=== PATIENT | female | born 1975 | race Caucasian/White ===

== ENCOUNTER → 2016-09-18 | Day surgery (SDC) | payer OTHER ==
[2016-09-03 09:05] VITALS: BMI 24.0
--- NOTE | 2016-09-03 09:39 | PAT Medication Instructions ---
Service Date Sep 03, 2016. Current Home Medication List Acetaminophen (Tylenol), 1,000 MG PO PRN Multivitamin (Multivitamin), 1 TAB PO DAILY Medication Instructions For Your Scheduled Surgery - Hold the following medications the morning of surgery: Multivitamin (Multivitamin), 1 TAB PO DAILY - Take the following medications the morning of surgery with a sip of water OTHERWISE NOTHING TO EAT OR DRINK AFTER MIDNIGHT: Acetaminophen (Tylenol), 1,000 MG PO PRN (may take if needed up to 4 hours prior to surgery) If you have any questions please call us at [phone] (Shaniqua Brooks PA-C ) or [phone] or [phone]
[2016-09-03 09:59] LABS: BASO % 0.2 %; BASO ABS # 0.01 K/uL (0-0.2); COMPLETE YES; EOS % 1.1 %; HEMATOCRIT 37.4 % (37-47); LYMPH % 20.4 %; LYMPH ABS # 1.27 K/uL (1.2-3.4); MEAN CELL VOLUME 79.4 fL (80-100); MEAN CORPUSCULAR HEMOGLOBIN 25.9 pg (25-34); MEAN CORPUSCULAR HGB CONC 32.6 g/dl (32-36); MEAN PLATELET VOLUME 10.5 fL (7.4-10.4); MONO % 10.1 %; NEUT % 68.2 %; PLATELET COUNT 209 K/uL (130-400); RED BLOOD COUNT 4.71 M/uL (4.2-5.4); WHITE BLOOD COUNT 6.23 K/uL (4.8-10.8)
--- NOTE | 2016-09-17 15:30 | History and Physical ---
History & Physical Date Sep 17, 2016. Chief Complaint right parotid mass History of Present Illness The patient is a 40 year old female with complaints of enlarging mass right parotid Additional History Hepatic Disease: No Endocrine Disorder: No Kidney Disease: No Hypertension: No Heart Disease: No Bleeding Tendencies: No Infectious Diseases: No Allergies Coded Allergies: Erythromycin (Unverified Allergy, Unknown, G I UPSET, 09/03/16) Metoclopramide (Unverified Allergy, Unknown, AGITIATED, 09/03/16) Penicillins (Unverified Allergy, Unknown, RASH A CHILD, 09/03/16) HAS HAD INJECTION ADULT W/O PROBLEMS Home Medications Scheduled Acetaminophen (Tylenol), 1,000 MG PO PRN Multivitamin (Multivitamin), 1 TAB PO DAILY Physical Examination Skin: warm/dry, no rash Eyes: normal inspection, EOMI, sclerae normal ENT: normal ENT inspection, pharynx normal Head: normocephalic, atraumatic Neck: supple, no adenopathy, trachea midline, + pertinent finding (2 cm right parotid mass, rubbery, mobile) Respiratory/Chest: lungs clear, normal breath sounds, no respiratory distress Cardiovascular: regular rate, rhythm, no edema, no murmur Abdomen / GI: normal bowel sounds, non tender Back: normal inspection Extremities: normal inspection, normal range of motion Neurologic/Psych: no motor/sensory deficits, alert, normal reflexes, oriented x 3 Diagnosis right parotid mass Plan of Treatment right parotidectomy
[~2016-09-18] VITALS: Ht 170.2 cm; Wt 70.9 kg
[~2016-09-18] MED LIST: ATROPINE SULFATE 0.1 MG/ML 5ML SYR IV PRN; CEFAZOLIN 1000MG/55 ML D5W IV SCH; CEPH500C2 PO; CHECK SCOPOLAMINE PATCH PLACEMENT SCH; DEXAMETHASONE SOD INJ 4 MG/ML VIAL ONE; EpHEDrine SULFATE INJ 50 MG/ML AMP IV PRN; FENTANYL CITRATE INJ 50 MCG/1 ML 2 ML VIAL ONE; GLYCOPYRROLATE INJ 0.2 MG/ML VIAL ONE; LACTATED RINGER'S 1000ML 1,000 ML IV SCH; LIDOCAINE HCL 2% 2 ML VIAL (20MG/ML) ONE; LIDOCAINE/EPINEPHRINE 2% 1:200,000 20 ML SDV INJ ONE; MIDAZOLAM HCL 1 MG/ML 2ML VIAL ONE; MULT-506 PO; NEOSTIGMINE METHYLSULFATE 5 MG/5 ML SYR ONE; NURSING VERBAL MED ORDER ONE; ONDANSETRON INJ 2 MG/ML 2 ML VIAL IV PRN; ONDANSETRON INJ 2 MG/ML 2 ML VIAL ONE; OXYC-57 PO; OXYCODONE/ACETAMINOPHEN 5-325 TAB PO PRN; PROPOFOL IV EMULSION 10 MG/ML 20 ML VIAL IV ONE; ROCURONIUM BROMIDE 10 MG/ML 5 ML VIAL ONE; SCOPOLAMINE 1.5 MG TDSY TD SCH; SODIUM CHLORIDE 0.9% 1000ML 1,000 ML IV SCH; TYLOTC500 PO
[2016-09-18 05:41] VITALS: BP 166/89; PULSE 87; TEMP 37.4; O2SAT 98; Ht 170.2 cm; Wt 70.9 kg
--- NOTE | 2016-09-18 07:11 | History & Physical Bridge Note ---
H&P Re-Evaluation Bridge Note: I have examined the patient, reviewed the History & Physical and in the interval since the performance of the History & Physical I have noted the following changes of clinical significance: No changes noted
[2016-09-18] MEDS: FENTANYL CITRATE INJ 50 MCG/1 ML 2 ML VIAL IV PRN ×2 (09:50→09:57)
--- NOTE | 2016-09-18 09:51 | Discharge Instructions ---
Discharge Instructions Admission Reason for Admission: Right Parotid Mass Discharge Discharge Diagnosis / Problem: same Discharge Goals Goal(s): Therapeutic intervention Activity Recommendations Activity Limitations: resume your previous activity . Instructions / Follow-Up Instructions / Follow-Up ACTIVITY: Most patients are able to return to a full-time work schedule in 1 week; however this may vary according to your job. It may take longer to return to heavy physical or other demanding work, or shorter if you are feeling well. Do NOT drive a car until you are able to turn the neck side to side, which may take 1-[address] you are taking pain medicines. DIET: You may have temporary throat discomfort or difficulty swallowing. This is due to the surgery around your larynx (voice box) and esophagus (swallowing tube). These symptoms will gradually improve over the course of several weeks. Drink and eat foods that can be swallowed easily, e.g. juice, soup, gelatin, applesauce, scrambled eggs or mashed potatoes. You may be able to return to your usual diet in a couple of days. INCISION CARE: You may shower 24 hours after surgery but please do not swim or soak in a tub for at least 2 weeks. After you are done showering, just pat your incision dry. If it is draining clear fluid, you can cover it with a dry dressing (such as gauze). Do NOT scrub with soap or washcloth for the first 10 days. Mild swelling at the incision site will go away in 4-6 weeks. The pink line will slowly fade to white during the next 6-12 months. Use a sunscreen (SPF#30 or higher) or wear a scarf for protection if in the sun for the first 6 months to a year as the sun can darken your scar. You may begin to use a hypoallergenic moisturizing cream (no vitamin E, Mederma , or other scar creams) along the incision after 2 weeks. COMMON PROBLEMS: Numbness of the skin under the chin or above the incision is normal and should go away in a few weeks. You may feel a lump or pressure in your throat sensation when swallowing for a few days. Your incision may feel itchy while it heals. Avoid rubbing or scratching if possible. You may feel neck stiffness, tightness or a pulling feeling. Some people prefer to sleep with an extra pillow for the first few days after the surgery, this helps keep swelling around your incision to a minimum. Your voice may be hoarse or weak. Pitch or tone may change. You may have difficulty singing. This usually goes back to normal over 6 weeks to 6 months. After surgery, you may notice a change in your mood, emotional ups and downs, depression, irritability or fatigue and weakness. These changes will get better as time passes. You do not need to be at bed rest, being active is normally well tolerated within reason. CALL YOUR DOCTOR IF: For any non-urgent questions, call Dr. Castanon office [phone] or the nursing unit where you were a patient. Call Dr. Gibson [phone] or go to the Emergency Room if you have fever ( temperature greater than 100.5), chills, lightheadedness, shortness of breath, difficulty breathing, nausea, vomiting, numbness or tingling in your fingers, hands, or mouth, muscle spasms, or if you notice signs of wound infection ( redness, tenderness, or drainage from the incision). Please also call or go to the Emergency Room if you have any other urgent concerns. FOLLOW UP VISIT: Follow-up visit with Dr. Gibson. Please call to schedule if not already scheduled. Current Hospital Diet Patient's current hospital diet: Discharge Diet Recommended Diet: Regular Diet Procedures Procedures Performed: Right Superficial Parotidectomy Pending Studies Studies pending at discharge: no Medical Emergencies . Who to Call and When: Medical Emergencies: If at any time you feel your situation is an emergency, please call 311 immediately. . Non-Emergent Contact Non-Emergency issues call your: Primary Care Provider . "Provider Documentation" section prepared by Jennifer Gibson. VTE Core Measure Inpt VTE Proph given/why not?: SCD's [place] Drug Monitoring Program Search Results: no issues identified
--- NOTE | 2016-09-18 10:31 | Anesthesiology Progress Note ---
Anesthesia Post Op Note Date & Time Sep 18, 2016 at 10:28 Vital Signs Pain Intensity: 0 Vital Signs Past 12 Hours Date Time Temp Pulse Resp B/P Pulse Ox O2 Delivery O2 Flow Rate FiO2 09/18/16 10:10 106 10 157/85 99 Mask 10 09/18/16 10:00 131 17 156/91 100 Mask 10 09/18/16 09:50 109 17 154/92 99 Mask 10 09/18/16 09:42 36.6 110 16 151/89 99 Mask 10 09/18/16 05:41 37.4 87 16 166/89 98 Room Air Notes Mental Status: alert / awake / arousable, participated in evaluation Pt Amnestic to Procedure: Yes Nausea / Vomiting: adequately controlled Pain: adequately controlled Airway Patency, RR, SpO2: stable & adequate BP & HR: stable & adequate Hydration State: stable & adequate Anesthetic Complications: no major complications apparent Pt noted to have L jaw dislocation in PACU. Pt was given fentanyl 125mcg and midazolam 2mg IV, I placed gentle downward and backward pressure on her mandible , and her jaw returned to its normal position. Pt was tolerant of the procedure. She currently has no complaints of pain/discomfort in her jaw. I spoke to her about her jaw dislocation when she was more awake. Pt is otherwise stable to be discharged.
[2016-09-18 10:38] VITALS: BP 150/93; PULSE 106; TEMP 37.1; O2SAT 98
--- NOTE | 2016-09-18 10:54 | OPERATIVE REPORT ---
DATE OF OPERATION: 09/18/2016 PREOPERATIVE DIAGNOSIS: Right parotid mass. POSTOPERATIVE DIAGNOSIS: Same. PROCEDURE: Right parotidectomy. SURGEON: Dr. Gibson. ANESTHESIA: General endotracheal. COMPLICATIONS: None. BLOOD LOSS: 30 mL. HISTORY OF PRESENT ILLNESS: A 40-year-old lady with a non-enlarging right parotid mass over the last 6 months. DESCRIPTION OF PROCEDURE: The patient was brought to the operating room, placed in supine position, general anesthesia was induced, prepped, draped in usual sterile manner. The incision was in the usual parotid incision in the preauricular crease following the lobule of the ear to the mastoid and then down curvilinear fashion into the neck. Incision was made using a 15 blade, carried down through the skin, subcutaneous layer and then the platysmal layer in the cervical portion and then down to the tragal cartilage in the preauricular portion. Blunt and sharp dissection was performed the posterior border of the parotid from the sternocleidomastoid muscle and the posterior facial vein and the greater auricular nerve and then the parotid was from the preauricular cartilage and also from the tragal pointer. The tragal pointer was followed down to the facial nerve which was then identified and followed anteriorly to the pes anserinus. All the branches were identified and followed anteriorly, preserving all these branches dissecting out the superficial lobe and the lower portion of the parotid, preserving the upper portion of the parotid. In this manner, the entire tumor along with the superficial lobe of the parotid was excised. Bleeders were controlled using the bipolar cautery to preserve the nerve. Inferiorly, the greater auricular nerve ran through the tumor and had to be sacrificed. The posterior facial vein was identified and preserved as it enters into the jugular; however, there was a high jugular node at the tail the parotid, this was also excised and sent as a fresh specimen to pathology. Hemostasis was noted to be good. The wound was irrigated with copious amounts of saline and then closed with interrupted 4-0 Vicryl sutures on the platysmal layer, interrupted 4-0 chromic sutures on the subcuticular layer and then interrupted 4-0 nylon sutures on the skin with a [place] drain being placed in the depth of the wound and then tied in place. Light pressure dressing was placed. The patient tolerated procedure well and was taken to recovery area where facial nerve function noted to be intact. I attest to the content of the Intraoperative Record and any orders documented therein. Any exceptions are noted below. MTDD
[2016-09-18 11:10] VITALS: BP 151/84; PULSE 100; O2SAT 96
[2016-09-18 11:40] VITALS: BP 137/81; PULSE 91; O2SAT 97
[2016-09-18 12:25] VITALS: BP 127/85; PULSE 88; TEMP 37.1; O2SAT 97
== END | disposition home or self-care (01) ==
LOC: C.ACU 05:01
PROVIDERS: ATTEND Otolaryngology
DX: D11.0 Benign neoplasm of parotid gland (principal); Z88.0 Allergy status to penicillin; Z88.1 Allergy status to other antibiotic agents; Z68.24 Body mass index [BMI] 24.0-24.9, adult; Z90.89 Acquired absence of other organs